=== PATIENT | male | born 1970 | race Caucasian/White ===

== ENCOUNTER 2025-03-25 12:34 | Observation (INO) | payer OTHER ==
[2025-03-25 13:44] LABS: #Basophils 0.04 10x3/uL (0.0-0.2); #Eosinophils 0.25 10x3/uL (0.0-0.5); #Monocytes 0.59 10x3/uL (0.0-1.1); #Neutrophils 4.34 10x3/uL (1.5-8.4); %Basophils 0.6 % (0.0-2.0); %Eosinophils 3.7 % (0.0-6.0); %Lymphocytes 21.8 % (18.0-47.0); %Monocytes 8.8 % (0.0-10.0); %Neutrophils 64.8 % (40.0-75.0); Hematocrit 35.9 % (38.8-50.0); Hemoglobin 11.1 g/dL (13.5-17.5); Mean Corpuscular Hemoglobin 28.0 pg (27.0-33.0); Mean Corpuscular Volume 90.7 fL (81.2-95.1); Platelet Count 202 10x3/uL (150-450); Red Blood Cell (RBC) Count 3.96 10x6/uL (4.32-5.72); White Blood Cell (WBC) Count 6.70 10x3/uL (3.5-10.5)
[2025-03-25 13:58] LABS: ALT (SGPT) 38 U/L (Less than 45); AST (SGOT) 22 U/L (11-34); Albumin 3.6 g/dL (3.1-4.5); Alkaline Phosphatase 105 U/L (40-110); Anion Gap 11 mmol/L (10-20); BUN (Urea Nitrogen) 33 mg/dL (8.4-25.7); Bilirubin, Total 0.3 mg/dL (0.3-1.2); Calc. Creatinine Clearance 0 mL/min (70-130); Calcium 8.3 mg/dL (7.8-10.44); Carbon Dioxide 24 mmol/L (22-29); Chloride 109 mmol/L (98-107); Globulin 2.9 g/dL (2.4-3.5); Glucose 192 mg/dL (70-105); Potassium 5.4 mmol/L (3.5-5.1); Sodium 139 mmol/L (136-145)
[2025-03-25 14:04] LABS: Troponin I Less than 0.010 ng/mL (< 0.028)
[2025-03-25 17:54] VITALS: BMI 38.9
[2025-03-25] MEDS ORDERED: Senokot S 8.6-50 MG TAB PO PRN (17:56)
[2025-03-25] MEDS ORDERED: Melatonin 3 MG TAB PO PRN (17:56)
[2025-03-25] MEDS ORDERED: Ondansetron PF 4 MG/2 ML Vial IVP PRN (17:56)
[2025-03-25] MEDS ORDERED: Glucagon 1 MG/ML KIT IM PRN (17:58)
[2025-03-25] MEDS ORDERED: Dextrose 50% Abboject 50 ML SYRINGE SLOW IVP PRN (17:58)
[2025-03-25] MEDS: Acetaminophen 325 MG TAB PO PRN (21:12)
[2025-03-25 22:29] LABS: Troponin I Less than 0.010 ng/mL (< 0.028)
[2025-03-26 01:25] LABS: Troponin I Less than 0.010 ng/mL (< 0.028)
[2025-03-26 05:25] LABS: #Basophils 0.03 10x3/uL (0.0-0.2); #Eosinophils 0.30 10x3/uL (0.0-0.5); #Monocytes 0.51 10x3/uL (0.0-1.1); #Neutrophils 2.50 10x3/uL (1.5-8.4); %Basophils 0.6 % (0.0-2.0); %Eosinophils 5.9 % (0.0-6.0); %Lymphocytes 34.2 % (18.0-47.0); %Monocytes 10.0 % (0.0-10.0); %Neutrophils 48.9 % (40.0-75.0); Hematocrit 36.6 % (38.8-50.0); Hemoglobin 11.5 g/dL (13.5-17.5); Mean Corpuscular Hemoglobin 28.1 pg (27.0-33.0); Mean Corpuscular Volume 89.5 fL (81.2-95.1); Platelet Count 179 10x3/uL (150-450); Red Blood Cell (RBC) Count 4.09 10x6/uL (4.32-5.72); White Blood Cell (WBC) Count 5.11 10x3/uL (3.5-10.5)
[2025-03-26 05:39] LABS: Anion Gap 13 mmol/L (10-20); BUN (Urea Nitrogen) 36 mg/dL (8.4-25.7); Calc. Creatinine Clearance 97 mL/min (70-130); Calcium 8.1 mg/dL (7.8-10.44); Carbon Dioxide 21 mmol/L (22-29); Chloride 111 mmol/L (98-107); Glucose 98 mg/dL (70-105); Potassium 5.0 mmol/L (3.5-5.1); Sodium 140 mmol/L (136-145)
[2025-03-26 05:45] LABS: Cardiac Risk 2.7 (Less than 4.5); Cholesterol 109 mg/dl (< 200 Desired); HDL Cholesterol 41 mg/dL (>60 Neg Risk); LDL Cholesterol, Calculated 51 mg/dL; Triglycerides 87 mg/dL (Less than 150)
[2025-03-26] MEDS: Multivit, Therapeutic 1 TAB PO SCH (09:47)
[2025-03-26] MEDS: QUEtiapine 100 MG TAB PO SCH (09:47)
[2025-03-26] MEDS: lamoTRIgine 100 MG TAB PO SCH (09:47)
[2025-03-26] MEDS: Metoprolol Succinate XL 50 MG ER.TAB PO SCH (09:47)
[2025-03-26] MEDS: Aspirin Chewable 81 MG TAB PO SCH (09:47)
[2025-03-26] MEDS: Isosorbide Mononitrate 30 MG ER.TAB.S PO SCH (09:48)
[2025-03-26] MEDS: Famotidine 20 MG TAB PO SCH (21:02)
[2025-03-26 21:54] LABS: Troponin I Less than 0.010 ng/mL (< 0.028)
[2025-03-27 04:38] LABS: #Basophils 0.04 10x3/uL (0.0-0.2); #Eosinophils 0.33 10x3/uL (0.0-0.5); #Monocytes 0.46 10x3/uL (0.0-1.1); #Neutrophils 2.63 10x3/uL (1.5-8.4); %Basophils 0.8 % (0.0-2.0); %Eosinophils 6.5 % (0.0-6.0); %Lymphocytes 31.1 % (18.0-47.0); %Monocytes 9.1 % (0.0-10.0); %Neutrophils 52.1 % (40.0-75.0); Hematocrit 35.9 % (38.8-50.0); Hemoglobin 11.4 g/dL (13.5-17.5); Mean Corpuscular Hemoglobin 28.2 pg (27.0-33.0); Mean Corpuscular Volume 88.9 fL (81.2-95.1); Platelet Count 199 10x3/uL (150-450); Red Blood Cell (RBC) Count 4.04 10x6/uL (4.32-5.72); White Blood Cell (WBC) Count 5.05 10x3/uL (3.5-10.5)
[2025-03-27 04:51] LABS: Anion Gap 10 mmol/L (10-20); BUN (Urea Nitrogen) 28 mg/dL (8.4-25.7); Calc. Creatinine Clearance 121 mL/min (70-130); Calcium 8.5 mg/dL (7.8-10.44); Carbon Dioxide 23 mmol/L (22-29); Chloride 113 mmol/L (98-107); Glucose 184 mg/dL (70-105); Potassium 4.4 mmol/L (3.5-5.1); Sodium 142 mmol/L (136-145)
[2025-03-27] MEDS: Ketorolac Tromethamine 30 MG (1 mL) VIAL IVP SCH (11:01)
[2025-03-27 16:43] VITALS: BP 124/74; TEMP 98.4
== END 2025-03-27 18:46 ==
LOC: CSHERS 12:34 → CSHTELE 15:53
PROVIDERS: ADMIT Internal Medicine; ATTEND Internal Medicine
PROC: B24BZZZ Ultrasonography of Heart with Aorta (ICD-10-PCS; principal; 2025-03-26)
DX: R07.2 Precordial pain (principal); I10 Essential (primary) hypertension; I25.10 Atherosclerotic heart disease of native coronary artery without angina pectoris; E11.51 Type 2 diabetes mellitus with diabetic peripheral angiopathy without gangrene; E78.5 Hyperlipidemia, unspecified; F32.A Depression, unspecified; Z95.5 Presence of coronary angioplasty implant and graft; Z89.612 Acquired absence of left leg above knee; Z88.0 Allergy status to penicillin; Z79.82 Long term (current) use of aspirin; Z79.02 Long term (current) use of antithrombotics/antiplatelets; Z79.84 Long term (current) use of oral hypoglycemic drugs; Z79.4 Long term (current) use of insulin; Z79.899 Other long term (current) drug therapy
CPT/HCPCS: 36415; 36416; 71045; 80048; 80053; 80061; 83880; 84484; 85025; 93005; 93010; 93306; 96374; J1885; J2270; J3010; J7030; J7120